=== PATIENT | female | born 1955 | race Caucasian/White ===

== ENCOUNTER → 2017-09-26 07:07 | Outpatient (CLI) | payer SELFPAY ==
[2017-09-26 10:29] LABS: Anion Gap 8 (5-15); BUN 11 mg/dL (7-18); BUN/Creat Ratio 15.7 RATIO (10-20); Calcium,Total 9.3 mg/dL (8.5-10.1); Chloride 101 mmol/L (98-107); Cholesterol 217 mg/dL (200); EST Glomerular Filtration Rate 89 mL/min (>60); Est Glom Filt Rate - Afr Amer 108 mL/min (>60); Glucose 92 mg/dL (74-106); High Density Lipoprotein 46 mg/dL; Potassium 4.4 mmol/L (3.5-5.1); Sodium Level 135 mmol/L (136-145); Thyroid Stim Hormone (TSH) 1.49 uIU/mL (0.358-3.74); Triglycerides 240 mg/dL; Very Low Density Lipoprotein 48 mg/dL (5-40); Vitamin D,25 Hydroxy 36.3 ng/mL (29.95-100.01)
== END ==
PROVIDERS: Family Provider Family Medicine; PCP Family Medicine; Visit Provider Family Medicine
DX: I10 Essential (primary) hypertension (principal); M85.80 Other specified disorders of bone density and structure, unspecified site
CPT/HCPCS: 36415; 80048; 80061; 82306; 84443

== ENCOUNTER → 2017-10-20 10:24 | Outpatient (CLI) | payer SELFPAY | PROVIDERS: Family Provider Family Medicine; PCP Family Medicine; Visit Provider Obstetrics & Gynecology | DX: Z12.4 Encounter for screening for malignant neoplasm of cervix (principal); Z12.72 Encounter for screening for malignant neoplasm of vagina | CPT/HCPCS: 87624; 88175; G0145 ==

== ENCOUNTER 2018-05-11 12:08 | Emergency (ER) | payer MEDICAID, SELFPAY ==
[2018-05-11 12:09] VITALS: BP 100/63; PULSE 118; RESP 16; TEMP 35.5; O2SAT 99; BMI 26.6
--- NOTE | 2018-05-11 12:29 | CT_ITS ---
We are attempting to reach Mikael Wilson to discuss findings. An addendum with communication details will be sent when the communication is complete. STUDY: CT ABDOMEN AND PELVIS WITHOUT CONTRAST REASON FOR EXAM: Female, 62 years old. Lower abdominal pain. Nausea and vomiting. Decreased appetite. RADIATION DOSAGE (If Supplied By Facility): CTDIvol = ( 11.69 ) mGy, DLP = ( 575.37 ) mGycm TECHNIQUE: Transaxial images were obtained from the dome of the diaphragm to the symphysis pubis without oral contrast, and without intravenous contrast. Sagittal and coronal images were reconstructed. Individualized dose optimization techniques were used for this CT. COMPARISON: None. FINDINGS: Lung bases: Lingular nodule measuring 5 mm (axial image 7 series 2). Right lung bases. Heart: Enlarged precardiac lymph node (axial image 13 series 2). Minimal coronary artery disease. Liver: Hepatic steatosis. Perihepatic ascites. Gallbladder/biliary ducts: Markedly heterogeneous appearance of the gallbladder (axial image 55 series 2 and coronal image 43 series 601). No biliary ductal dilatation. Pancreas: Unremarkable. Spleen: Perisplenic ascites. Slightly atrophic appearance of the spleen. Adrenal glands: Unremarkable. Kidneys/ureters/bladder: Unremarkable. 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 Large bowel/small bowel: Distal colon collapsed. Mild fatty replacement of the colonic wall. Fluid filled slightly dilated loops of large bowel and small bowel at the right hemiabdomen. No evidence of urvashi bowel obstruction. No evidence of perforation. No evidence of pneumatosis. Appendix: Nonvisualized. Gastroesophageal junction/stomach: Unremarkable. Retroperitoneum/lymph nodes: Diffuse mesenteric infiltration/carcinomatosis (axial image 114 series 2). Moderate volume deep pelvic free fluid with perihepatic and perisplenic ascites. Vascular: Vascular calcifications. No aneurysm. Osseous structures: Degenerative changes. No acute process. Subcutaneous/soft tissues: No acute process. 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
--- NOTE | 2018-05-11 12:33 | ED.DCSUM_ITS ---
- ER Visit Summary Date of Service: 05/11/18 Chief Complaint: Abdominal pain History of Present Illness: The patient is a 62 F who presents with lower abdominal pain for the past 1-1/2 weeks. Patient states the pain is gradually gotten worse. Patient states her primary care physician started her on Cipro and Flagyl for presumptive diverticulitis. Patient states her pain is over her lower abdomen. Patient describes the pain is dull cramping. Patient states pain is worse with sitting on a hard chair. Patient states her nausea improves when she lays flat. Patient admits to some nausea and vomiting but denies any hematemesis or coffee-ground emesis. Patient denies any diarrhea but denies any melena or hematochezia. Patient denies any urinary complaints. Patient denies any chest pain or shortness of breath. Physical Examination: Vital signs are stable. Patient is afebrile. Patient is in no acute distress. Oral mucosa is pink and moist. Neck is supple. Trachea is midline. There is no JVD noted. Heart was regular rate and rhythm. Lungs are clear and equal bilateral. Abdomen is soft. Bowel sounds are normal. There is lower abdominal tenderness. There is no rebound or guarding noted. Skin is warm dry. Cranial nerves II through XII are intact. There are no focal motor or sensory deficits noted. The remaining physical exam is within normal limits. Test Results: CBC showed a mild anemia with a hemoglobin of 11.6 and hematocrit 36.3. Basic metabolic profile showed a sodium of 127 and chloride of 95. Creatinine was slightly elevated at 1.18. Urinalysis was normal. CT scan of the abdomen and pelvis was obtained. There is diffuse infiltrative changes of the omentum and carcinomatosis with free fluid. There are dilated bowel loops in the right lower quadrant concerning for ileus. There is a heterogeneous gallbladder concerning for possible primary malignancy. SLURRY BLENDER anatomy is poorly defined secondary to extensive mesenteric changes and adjacent free fluid which is concerning for SLURRY BLENDER malignancy. There is also a 5 mm nodule noted in the left lingular segment and a chest CT was recommended. Emergency Department Course and Treatment: She was given IV fluids and morphine here. I discussed the results of her CT scan with the patient. Case was discussed with the hospitalist. She recommended transferring the patient to a tertiary facility that has gynecology oncology service. Case was discussed with Dr. Levi from [facility]. They accepted transfer the patient. Patient understood and was agreeable with the plan. All questions were answered. Disposition: Transfer to [facility] Impression: Abdominal pain, concern for abdominal malignancy This note was generated with [employer] dictation software. It may contain incorrect words, spelling, and punctuation that were not noted in review of the chart prior to signing ED Disposition - Plan for ED Patient: Disposition: [facility] Diagnosis: Abdominal pain, Abdominal malignancy Referrals: Jeffrey Hunt MD [Primary Care Provider] -
[2018-05-11 13:15] LABS: Mucous, Urine 0 SEEN /hpf (<or=2+)
[2018-05-11 13:17] LABS: Absolute Lymphocyte Count 0.89 X10^3/ul (0.83-4.51); Absolute Neutrophil Count 8.1 X10^3/uL (2.0-7.7); Basophil# 0.03 X10^3/uL; Basophil% 0.3 % (0-1); Eosinophil# 0.26 X10^3/uL; Eosinophils% 2.6 % (0-5); Hematocrit 36.3 % (37-47); Hemoglobin 11.6 g/dl (12.0-15.0); Lymphocyte # 0.89 X10^3/ul (4.0); Lymphocyte % 8.8 % (19-41); Mean Corpuscular Hgb 27.6 pg (27.0-32.0); Mean Corpuscular Volume 86.2 fL (81-99); Mean Platelet Vol. 8.2 fl (6.2-12.0); Monocyte# 0.81 X10^3/uL; Neutrophil # 8.13 X10^3/uL (2.7-7.7); Neutrophil % 80.1 % (47-70); POSITIVE COUNT NO; POSITIVE DIFFERENTIAL NO; POSITIVE MORPHOLOGY NO; Platelet Count 676 K/mm3 (150-450); RBC Distribution Width CV 12.2 % (11.6-14.6); RBC Distribution Width SD 37.4 fl (35.1-43.9); Red Blood Count 4.21 M/mm3 (4.2-5.4); White Blood Count 10.1 K/mm3 (4.4-11.0)
[2018-05-11] MEDS: Ondansetron 4 MG/2 ML Vial IV (13:19)
[2018-05-11] MEDS: Morphine 4 MG/ML Syringe IV (13:19)
[2018-05-11 13:20] LABS: Color, Urine Yellow (Yellow); Glucose, Dipstick Normal (Normal); Ketone-Dipstick Negative (Negative); Leukocyte Esterase-Dipstick 25 /ul (Negative); Nitrite-Dipstick Negative (Negative); Occult Blood-Urine 10 /ul (Negative); Protein-Dipstick 15 mg/dl (Negative); Specific Gravity, Urine 1.015 (1.002-1.030); Urine Bilirubin Dipstick Negative (Negative); Urine Clarity Sl. Cloudy (Clear); Urine Urobilinogen Normal (Normal)
[2018-05-11 13:29] LABS: Bacteria 1+ /hpf (None Seen); Red Blood Cells-Urine 0-5 SEEN /hpf (0-5); Squamous Epithelial Cells - UA 0-5 SEEN /hpf (5-10); White Blood Cells 0-5 SEEN /hpf (0-5)
[2018-05-11 13:31] LABS: ALB/GLOB Ratio 0.6 RATIO (0.9-2.4); AST(SGOT) 14 U/L (15-37); Alanine Aminotransfer ALT/SGPT 21 U/L (13-56); Alkaline Phosphatase 91 U/L (45-117); Anion Gap 9 (5-15); BUN 17 mg/dL (7-18); BUN/Creat Ratio 14.4 RATIO (10-20); Calcium,Total 9.3 mg/dL (8.5-10.1); Chloride 95 mmol/L (98-107); Creatinine, Serum 1.18 mg/dL (0.55-1.02); EST Glomerular Filtration Rate 49 mL/min (>60); Est Glom Filt Rate - Afr Amer 59 mL/min (>60); Estimated Creatinine Clearance 41.59 ml/min; Globulin 5.4 g/dL (2.2-4.2); Glucose 104 mg/dL (74-106); Lipase 203 U/L (73-393); Potassium 4.3 mmol/L (3.5-5.1); Protein, Total 8.4 g/dL (6.4-8.2); Sodium Level 127 mmol/L (136-145)
--- NOTE | 2018-05-11 13:52 | ED.RN ---
pain states pain decreased to a 2
[2018-05-11 14:06] VITALS: BP 96/44; PULSE 100; RESP 16; O2SAT 98
[2018-05-11] MEDS: 0.9% Normal Saline 1,000 ML 999 ML IV (14:06)
[2018-05-11 15:54] VITALS: BP 97/58; PULSE 106; RESP 16; O2SAT 97
[2018-05-11 16:49] VITALS: BP 128/70; PULSE 106; RESP 16; O2SAT 97
[2018-05-11 17:42] VITALS: BP 133/68; PULSE 102; RESP 16; O2SAT 95
== END 2018-05-11 18:42 | disposition short-term general hospital (02) ==
PROVIDERS: Emergency Provider Emergency Medicine; Family Provider Family Medicine; PCP Family Medicine
DX: R10.30 Lower abdominal pain, unspecified (principal); R11.2 Nausea with vomiting, unspecified; D64.9 Anemia, unspecified; M54.9 Dorsalgia, unspecified; G89.29 Other chronic pain; I10 Essential (primary) hypertension; K58.9 Irritable bowel syndrome, unspecified; R19.7 Diarrhea, unspecified; Z72.0 Tobacco use; Z79.82 Long term (current) use of aspirin; Z79.899 Other long term (current) drug therapy
CPT/HCPCS: 74176; 80053; 81001; 83690; 85025; 96361; 96374; 96375; 99284; J7030; A4216; J2405

== ENCOUNTER 2018-05-18 14:49 | Emergency (ER) | payer MEDICAID, SELFPAY ==
[2018-05-18 14:50] VITALS: BP 124/71; PULSE 132; RESP 20; TEMP 36.7; O2SAT 97; BMI 27.4
[2018-05-18 15:05] VITALS: BP 122/75; PULSE 125; RESP 26; O2SAT 93
--- NOTE | 2018-05-18 15:24 | ED.VISSUMM ---
- ER Visit Summary Date of Service: 05/18/18 Chief Complaint: Vomiting, abdominal pain History of Present Illness: The patient is a 62 F with lower abdominal and back pain for the past 3 weeks. She was seen here in the ER last week and CT scan showed concern for diffuse cancer in her abdomen, possibly INSURANCE CLAIMS EXAMINER in origin. Patient was transferred to [facility] where she had a nodule biopsied. Patient states she was called and told it was not INSURANCE CLAIMS EXAMINER source of her cancer and she is awaiting a call for follow-up with regular oncology. Patient presents back today with continued abdominal pain, nausea, and vomiting. She has had decreased p.o. intake. She does report that she is still urinating, but it is dark and concentrated. Physical Examination: Blood pressure is 122/75, temperature 98.0, heart rate 125, respiratory rate 26, pulse ox 93% on room air. Patient sitting upright in bed no acute distress. She appears ill but not toxic. Head neck examination is significant for dry mucous membranes. Heart is tachycardic and regular. Lungs sounds are grossly clear. Abdomen is soft with mild diffuse tenderness. Abdomen is distended. There is no guarding or rebound. Hypoactive bowel sounds are present. Test Results: CBC was normal white count with 83% neutrophils. Hemoglobin is 11.5 and platelet count is 663,000. Chemistry studies are significant for sodium of 127 and a chloride of 88. Glucose is 132. LFTs significant for total bili of 1.20, direct bili 0.94, alk phos 409. ALT is 106 and AST is 163. Lipase is 35,685. Right upper quadrant ultrasound is read by radiologist as findings concerning for acute cholecystitis. Gallbladder garcia measuring 3 mm. There is volodymyr-cholecystic fluid. Common bile duct is mildly dilated at 10.2 mm. Of note the patient had an CT scan last week that showed ascites. Emergency Department Course and Treatment: Patient was initially given morphine and Phenergan for pain along with IV fluids. She is given a second dose of morphine and Zofran. Test results were discussed with Dr. Sanabria. He was able to review the notes from [facility]. Looking at her images tonight he does not believe the patient has acute cholecystitis. Gallbladder wall is minimally thickened and pericholecystic fluid is likely secondary to her ascites. Concern is for primary upper GI cancer, from gallbladder or pancreas. This may be compressing the duct now causing acute pancreatitis. Patient likely needs evaluation at a tertiary center with ERCP and further testing to determine her primary source. He feels that this would best be accomplished back at [facility]. I spoke with the transfer line as well as the hospitalist. They also spoke with her surgeon. Patient has been accepted in transfer. Treatment Plan: [] Disposition: Transfer Impression: 1. Pancreatitis 2. Carcinomatosis This note was generated with [employer] dictation software. It may contain incorrect words, spelling, and punctuation that were not noted in review of the chart prior to signing ED Disposition - Plan for ED Patient: Referrals: Jeffrey Hunt MD [Primary Care Provider] -
[2018-05-18 15:35] LABS: Absolute Lymphocyte Count 0.86 X10^3/ul (0.83-4.51); Absolute Neutrophil Count 9.1 X10^3/uL (2.0-7.7); Basophil# 0.01 X10^3/uL; Basophil% 0.1 % (0-1); Eosinophil# 0.17 X10^3/uL; Eosinophils% 1.6 % (0-5); Hematocrit 35.5 % (37-47); Hemoglobin 11.5 g/dl (12.0-15.0); Lymphocyte # 0.86 X10^3/ul (4.0); Lymphocyte % 7.9 % (19-41); Mean Corp Hgb Conc 32.4 g/gl (32-36); Mean Corpuscular Hgb 27.6 pg (27.0-32.0); Mean Corpuscular Volume 85.1 fL (81-99); Mean Platelet Vol. 8.5 fl (6.2-12.0); Monocyte# 0.73 X10^3/uL; Monocyte% 6.7 % (0-10); Neutrophil # 9.14 X10^3/uL (2.7-7.7); Neutrophil % 83.4 % (47-70); Platelet Count 663 K/mm3 (150-450); RBC Distribution Width CV 12.6 % (11.6-14.6); RBC Distribution Width SD 38.8 fl (35.1-43.9); Red Blood Count 4.17 M/mm3 (4.2-5.4); White Blood Count 10.9 K/mm3 (4.4-11.0)
[2018-05-18 15:36] LABS: POSITIVE COUNT NO; POSITIVE DIFFERENTIAL NO; POSITIVE MORPHOLOGY NO
[2018-05-18] MEDS: Morphine 4 MG/ML Syringe IV ×2 (15:45→19:17)
[2018-05-18] MEDS: proMETHazine 25 MG/ML Syringe 6.25 MG IV (15:45)
[2018-05-18] MEDS: 0.9% Normal Saline 1,000 ML 1000 ML IV (15:45)
[2018-05-18 16:32] LABS: AST(SGOT) 163 U/L (15-37); Alanine Aminotransfer ALT/SGPT 106 U/L (13-56); Albumin, Serum 2.5 g/dL (3.2-5.0); Alkaline Phosphatase 409 U/L (45-117); Anion Gap 13 (5-15); BUN 12 mg/dL (7-18); Bilirubin, Direct 0.94 mg/dL (0.00-0.30); Calcium,Total 9.4 mg/dL (8.5-10.1); Chloride 88 mmol/L (98-107); Creatinine, Serum 0.86 mg/dL (0.55-1.02); EST Glomerular Filtration Rate 71 mL/min (>60); Est Glom Filt Rate - Afr Amer 86 mL/min (>60); Estimated Creatinine Clearance 57.07 ml/min; Globulin 5.3 g/dL (2.2-4.2); Glucose 132 mg/dL (74-106); Lipase 35685 U/L (73-393); Potassium 4.1 mmol/L (3.5-5.1); Protein, Total 7.8 g/dL (6.4-8.2); Sodium Level 127 mmol/L (136-145)
[2018-05-18] MEDS: 0.9% Normal Saline 1,000 ML 150 ML IV (16:40)
--- NOTE | 2018-05-18 16:53 | US_ITS ---
STUDY: ABDOMINAL ULTRASOUND - RIGHT UPPER QUADRANT REASON FOR VISIT: Female, 62 years old. Pancreatitis TECHNIQUE: Ultrasound evaluation of the right upper quadrant was performed with real-time and static wolfe-scale imaging. TECHNICAL QUALITY: Limited. Examination limited by bowel gas. COMPARISON: None. FINDINGS: Liver: The liver measures 17.6 cm. There is increased echogenicity consistent with fatty infiltration. The bile ducts are within normal limits. There is hepatic color flow. The direction of portal flow is hepatopetal. There are 2 hypoechoic solid-appearing areas. Both appear to be in the right lobe of the liver, one of them measuring 1.1 x 1.1 x 1.3 cm and the second measuring 1.2 x 1.6 x 1.1 cm. Gallbladder: Normal distended gallbladder. The gallbladder wall measures 3.2 mm. There is a positive sonographic Clarke's sign. There is pericholecystic fluid. There are multiple echogenic structures within the gallbladder, consistent with multiple gallstones. Common Bile Duct (C.B.D.): The common bile duct measures 10.2 mm. Pancreas: Normal size of the head, body and tail of the pancreas. There is normal echogenicity of the pancreas. There is no demonstrated pancreatic mass or cyst. Right Kidney: Normal size of the right kidney. The right kidney measures 10.2 cm. Normal renal cortex. The right cortex measures 1.0 cm. There is no demonstrated renal mass or cyst. There is no right hydronephrosis. There appears to be small amount of ascites fluid US/Gallbladder IMPRESSION: 1. Findings as above concerning for acute cholecystitis. Also, mildly dilated common bile duct 2. Lobulated contour of the liver with coarse echotexture suggesting cirrhosis. Hypoechoic liver masses. Further evaluation is warranted 3. Grossly unremarkable pancreas Electronically Signed: Kristopher Urbina DO at 18:58 EST Tel , Service support ,
[2018-05-18 18:50] VITALS: BP 142/93; PULSE 114; RESP 16; O2SAT 95
[2018-05-18] MEDS: Ondansetron 4 MG/2 ML Vial IV (19:17)
[2018-05-18 21:07] VITALS: PULSE 116; RESP 18; TEMP 36.9; O2SAT 94
[2018-05-18 22:45] VITALS: BP 137/85; PULSE 108; RESP 20; O2SAT 90
== END 2018-05-18 23:15 | disposition short-term general hospital (02) ==
PROVIDERS: Emergency Provider Emergency Medicine; Family Provider Family Medicine; PCP Family Medicine
DX: K85.90 Acute pancreatitis without necrosis or infection, unspecified (principal); C80.0 Disseminated malignant neoplasm, unspecified; K83.8 Other specified diseases of biliary tract; I10 Essential (primary) hypertension; R11.2 Nausea with vomiting, unspecified; Z72.0 Tobacco use; Z79.82 Long term (current) use of aspirin; Z79.899 Other long term (current) drug therapy
CPT/HCPCS: 76705; 80048; 80076; 83690; 85025; 96361; 96374; 96375; 96376; 99283; J7030; A4216; J2405

== ENCOUNTER 2018-06-04 00:55 | Emergency (ER) | payer MEDICAID, SELFPAY ==
[2018-06-04] VITALS (14 sets, daily range): BP systolic 119–149; BP diastolic 67–97; PULSE 108–121; RESP 12–33; TEMP 36.1–36.7; O2SAT 73–100; BMI 31.0
--- NOTE | 2018-06-04 01:01 | EKG12_ITS ---
Test Reason : CP Blood Pressure : / mmHG Vent. Rate : 114 BPM Atrial Rate : 114 BPM P-R Int : 120 ms QRS Dur : 078 ms QT Int : 306 ms P-R-T Axes : 054 059 074 degrees QTc Int : 421 ms Sinus tachycardia Otherwise normal ECG Confirmed by REBEKAH SEQUEIRA, RASHMI ([id number]), writer editor FLAVIA ELLIS ([id number]) on 06/05/2018 1:06:12 PM Referred By: CARMELLA Confirmed By:RASHMI WELCH MD
--- NOTE | 2018-06-04 01:01 | RAD_ITS ---
HISTORY: SHORTNESS OF BREATH EXAM/TECHNIQUE: XR Chest 2 Views: COMPARISON: 05/11/18 CT abdomen and pelvis. FINDINGS: # of images incl. paperwork: 2 Small to moderate layering bilateral pleural effusions with adjacent atelectasis are new compared to prior. Heart size within normal limits. No apparent pneumothorax. The cephalad aerated portions of the lungs are clear. RAD/Chest PA and Lateral IMPRESSION: Small to moderate layering bilateral pleural effusions with adjacent atelectasis are new compared to prior. at 0224 Reported and signed by: Rodo Morales MD Electronically Signed: Rodo Morales, at 2:23 EDT Tel , Service support ,
[2018-06-04] MEDS: Albuterol 2.5 MG/3 ML VIAL.NEB. INHALATION ×3 (01:05→02:05)
[2018-06-04] MEDS: Ipratropium/Albuterol Sulfate 3 ML AMPUL.NEB INHALATION ×2 (01:05→08:26)
[2018-06-04] MEDS: MethylPREDNISolone 125 MG/2 ML Vial IV (01:15)
[2018-06-04] MEDS: LORazepam 2 MG/ML Syringe 1 MG IV (01:30)
[2018-06-04 01:35] LABS: Absolute Lymphocyte Count 1.04 X10^3/ul (0.83-4.51); Absolute Neutrophil Count 13.4 X10^3/uL (2.0-7.7); Basophil# 0.05 X10^3/uL; Basophil% 0.3 % (0-1); Eosinophil# 0.01 X10^3/uL; Eosinophils% 0.1 % (0-5); Hematocrit 32.2 % (37-47); Hemoglobin 9.6 g/dl (12.0-15.0); Lymphocyte # 1.04 X10^3/ul (4.0); Lymphocyte % 6.8 % (19-41); Mean Corp Hgb Conc 29.8 g/gl (32-36); Mean Corpuscular Hgb 26.5 pg (27.0-32.0); Mean Platelet Vol. 8.9 fl (6.2-12.0); Monocyte# 0.76 X10^3/uL; Neutrophil # 13.36 X10^3/uL (2.7-7.7); Neutrophil % 87.5 % (47-70); RBC Distribution Width CV 14.3 % (11.6-14.6); RBC Distribution Width SD 45.2 fl (35.1-43.9); Red Blood Count 3.62 M/mm3 (4.2-5.4); White Blood Count 15.3 K/mm3 (4.4-11.0)
[2018-06-04 01:38] LABS: Platelet Count 858 K/mm3 (150-450)
[2018-06-04 01:39] LABS: Differential Indicated SCAN CRITERIA MET; POSITIVE COUNT YES; POSITIVE DIFFERENTIAL NO; POSITIVE MORPHOLOGY YES
--- NOTE | 2018-06-04 01:41 | ED.RN ---
DR DUTTA NOTIFIED OF PLT COUNT
[2018-06-04 01:42] LABS: Anion Gap 5 (5-15); BUN 11 mg/dL (7-18); BUN/Creat Ratio 11.4 RATIO (10-20); Calcium,Total 8.5 mg/dL (8.5-10.1); Chloride 94 mmol/L (98-107); Creatinine, Serum 0.96 mg/dL (0.55-1.02); EST Glomerular Filtration Rate 62 mL/min (>60); Est Glom Filt Rate - Afr Amer 75 mL/min (>60); Estimated Creatinine Clearance 53.27 ml/min; Glucose 160 mg/dL (74-106); Potassium 4.8 mmol/L (3.5-5.1); Sodium Level 131 mmol/L (136-145)
[2018-06-04 01:49] LABS: Platelet Estimate MKD INC (ADEQ)
[2018-06-04 01:50] LABS: Hypochromasia 1+
[2018-06-04 02:36] LABS: Lactic Acid 2.1 mmol/L (0.4-2.0)
--- NOTE | 2018-06-04 02:37 | ED.RN ---
DR POLANCO NOTIFIED OF LACTIC ACID RESULTS
[2018-06-04] MEDS: 0.9% Normal Saline 1,000 ML 150 ML IV (03:10)
[2018-06-04 03:29] LABS: D-Dimer Quantitative (DVT/PE) > 20.00 FEU/ug/m (0.27-0.49)
--- NOTE | 2018-06-04 03:30 | CT_ITS ---
STUDY: CTA CHEST REASON FOR EXAM: Female, 62 years old. Dyspnea RADIATION DOSAGE (If Supplied By Facility): CTDIvol = ( 10.57 ) mGy, DLP = ( 1701.61 ) mGycm TECHNIQUE: The examination was performed with the intravenous administration of Isovue 370 100 IV. Post-processing of the angiographic images was performed, with multiplanar reformation and 3D reconstruction. Individualized dose optimization techniques were used for this CT. COMPARISON: None. FINDINGS: Normal enhancement of the main pulmonary artery and right and left pulmonary arteries. Normal enhancement of the bilateral peripheral pulmonary arteries. There is no demonstrated pulmonary embolism. Normal thoracic aorta and visualized great vessels. There is no demonstrated aortic dissection. Normal heart and pericardium. Normal mediastinum. Normal hilar regions. Normal visualized trachea and bronchi. Compressive atelectasis in the right and left lungs. Normal pulmonary parenchyma. Moderate bilateral pleural effusions. Normal chest wall structures. Normal osseous structures. CT/CTA Chest W/WO Contrast IMPRESSION: No demonstrated pulmonary embolism or arterial dissection. Compressive atelectasis in the right and left lung bases. Electronically Signed: Matteo Alvarado, at 5:09 EDT Tel , Service support ,
--- NOTE | 2018-06-04 04:34 | CT_ITS ---
STUDY: CT ABDOMEN AND PELVIS WITH CONTRAST REASON FOR EXAM: Female, 62 years old. Dyspnea. RADIATION DOSAGE (If Supplied By Facility): CTDIvol = ( 10.57 ) mGy, DLP = ( 1701.61 ) mGycm TECHNIQUE: Transaxial images were obtained from the dome of the diaphragm to the symphysis pubis without oral contrast. Isovue 370 100 IV was administered. Sagittal and coronal images were reconstructed. Individualized dose optimization techniques were used for this CT. COMPARISON: 05/11/2018. FINDINGS: Moderate bilateral pleural effusions The visualized portions of the heart are within normal limits. Normal liver. There is wall thickening gallbladder concerning for possible primary malignancy . Normal spleen. Normal pancreas. Normal bilateral adrenal glands. Normal right kidney. Normal left kidney. Normal visualized stomach. Normal small intestine. Normal colon. There is non-visualization of the appendix. Normal abdominal aorta. Normal inferior vena cava. Normal retroperitoneum. Normal urinary bladder. There is large amount of free fluid in the abdomen. Normal abdominal wall. Normal osseous structures. Diffuse omental infiltrative changes and with carcinomatosis. CT/Abdomen/Pelvis W IV Cont ONLY IMPRESSION: Large ascites has increased in size since the previous study. Diffuse omental infiltrative changes and with carcinomatosis. Electronically Signed: Matteo Alvarado, at 5:04 EDT Tel , Service support ,
[2018-06-04 04:47] LABS: BNP,B-Type NATRIURETIC PEPTIDE 2582.7 pg/mL (0-100)
[2018-06-04 05:11] LABS: AST(SGOT) 26 U/L (15-37); Alanine Aminotransfer ALT/SGPT 16 U/L (13-56); Albumin, Serum 2.2 g/dL (3.2-5.0); Alkaline Phosphatase 101 U/L (45-117); Bilirubin, Direct 0.08 mg/dL (0.00-0.30); Globulin 5.7 g/dL (2.2-4.2); Protein, Total 7.9 g/dL (6.4-8.2)
--- NOTE | 2018-06-04 05:22 | ED.VISSUMM ---
- ER Visit Summary Date of Service: 06/04/18 Chief Complaint: [Shortness of breath] History of Present Illness: The patient is a 62 F [presents to the emergency department with increasing shortness of breath over the last 24 hours. Patient was just discharged from [facility] yesterday for comfort measures. 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 Patient denies any chest pain currently. She does have a history of atrial fibrillation and COPD. She denies any fevers. No significant cough.] Physical Examination: [HEENT-PERRLA, EOMI. Cranial nerves II through XII grossly intact. TMs clear. Mucous membranes moist. No adenopathy. Cardiovascular-regular rate and rhythm without murmur or ectopy Lungs-tachypneic with accessory muscle use and retractions noted. Patient diaphoretic. Patient with rales in the bases and decreased breath sounds bilaterally. Patient has expiratory wheezes bilaterally. Abdomen-normoactive bowel sounds, soft, nontender, no rebound or rigidity, no peritoneal signs. Extremities-intact ?4, normal range of motion, normal pulses, atraumatic. Patient has +2 edema both lower extremities.] Test Results: [EKG obtained showed sinus tachycardia with a ventricular rate of 114 bpm. CBC with differential showed a white count of 15.3, hemoglobin 9.6, hematocrit 32, platelets 858. Chemistries unremarkable. BUN was 11 and creatinine 0.96. Troponin was 0.144. D-dimer was less than 20. Lactate was 2.1. Chest x-ray initially showed bilateral effusions CT of the chest was negative for PE it did show bilateral effusions. CT scan of the abdomen and pelvis was ordered because the tax initially thought the patient might have free air in her abdomen however the radiologist thought that patient had large amount of ascites and carcinomatosis but no free air.] Emergency Department Course and Treatment: [Patient was given DuoNeb aerosols and started on BiPAP. Patient was given Solu-Medrol. Patient was started on Levaquin and vancomycin and blood cultures were ordered. Patient is a DO NOT INTUBATE and DO NOT RESUSCITATE. ] Treatment Plan: [Admit for continued symptom management. Family is asking for hospice consult.] Disposition: [Admit] Impression: [Respiratory distress COPD exacerbation Bilateral pleural effusions Carcinomatosis] This note was generated with Dragon dictation software. It may contain incorrect words, spelling, and punctuation that were not noted in review of the chart prior to signing ED Disposition - Plan for ED Patient: Referrals: Jeffrey Hunt MD [Primary Care Provider] -
--- NOTE | 2018-06-04 05:24 | PCM.HP.STD ---
History of Present Illness The patient is a 62 year old F [] Past Medical History Allergies Penicillins Allergy (Verified 05/18/18 14:53) Unknown acetaminophen [From Percocet] Adverse Reaction (Verified 06/04/18 03:17) Upset Stomach oxycodone [From Percocet] Adverse Reaction (Verified 06/04/18 03:17) Upset Stomach Home Medications: Ambulatory Orders Medication Instructions Recorded Aspirin E.C. [Ecotrin] 81 mg PO DAILY@0800 05/11/18 Cholecalciferol (Vitamin D3) 2,000 unit PO DAILY 05/11/18 [D3-2000] Ondansetron [Zofran Odt] 8 mg PO Q8H PRN 05/18/18 Acetaminophen [Pain Relief] 1,000 mg PO Q8H PRN 06/04/18 Aluminum-Magnesium Hydroxide 30 ml PO Q6H PRN 06/04/18 Bisacodyl 10 mg RC BID PRN 06/04/18 Docusate Sodium 100 mg PO BID 06/04/18 Hydromorphone HCl [Hydromorphone 0.5 - 1 tab PO Q3H PRN 06/04/18 ER] Metoprolol Tartrate [Lopressor 100 mg PO BID 06/04/18 (Beta Usama)] Pantoprazole Sodium 20 mg PO DAILY 06/04/18 Polyethylene Glycol 3350 [Miralax] 17 gm PO BID 06/04/18 Potassium Chloride 20 meq PO DAILY 06/04/18 Red Yeast Rice 1,200 units PO DAILY 06/04/18 SimETHICONE [Mylicon] 160 mg PO TID 06/04/18 Smoking Status: Current every day smoker - Physical Exam Vital Signs Temp Pulse Resp BP Pulse Ox 98.0 F 121 H 26 H 119/81 H 97 06/04/18 04:50 06/04/18 04:50 06/04/18 04:50 06/04/18 04:50 06/04/18 04:50 Oxygen Flow Rate (L/min) 6 Oxygen Delivery Method Nasal Cannula Weight: 84.7 kg Body Mass Index (BMI) 31.0 Laboratory Tests Past 24 Hrs 06/04/18 06/04/18 06/04/18 01:05 01:05 01:05 WBC 15.3 H RBC 3.62 L Hgb 9.6 L Hct 32.2 L MCV 89.0 MCH 26.5 L MCHC 29.8 L RDW 14.3 RDW Differential 45.2 H Plt Count 858 H* MPV 8.9 Immature Gran % (Auto) 0.300 Neut % (Auto) 87.5 H Lymph % (Auto) 6.8 L [place] % (Auto) 5.0 Eos % (Auto) 0.1 Baso % (Auto) 0.3 Absolute Neuts (auto) 13.4 H Absolute Lymphs (auto) 1.04 Total Counted Not Reportable Diff Path Review May foll Platelet Estimate MKD INC Hypochromasia 1+ D-Dimer Quant (PE/DVT) Cancelled Sodium 131 L Potassium 4.8 Chloride 94 L Carbon Dioxide 32.0 Anion Gap 5 BUN 11 Creatinine 0.96 Estim Creat Clear Calc 53.27 Est GFR (MDRD) Af Amer 75 Est GFR (MDRD) Non-Af 62 BUN/Creatinine Ratio 11.4 Glucose 160 H Lactic Acid Calcium 8.5 Total Bilirubin Direct Bilirubin AST ALT Alkaline Phosphatase Troponin I 0.144 H B-Natriuretic Peptide Total Protein Albumin Globulin 06/04/18 06/04/18 06/04/18 01:05 01:05 01:05 WBC RBC Hgb Hct MCV MCH MCHC RDW RDW Differential Plt Count MPV Immature Gran % (Auto) Neut % (Auto) Lymph % (Auto) [place] % (Auto) Eos % (Auto) Baso % (Auto) Absolute Neuts (auto) Absolute Lymphs (auto) Total Counted Diff Path Review Platelet Estimate Hypochromasia D-Dimer Quant (PE/DVT) Sodium Potassium Chloride Carbon Dioxide Anion Gap BUN Creatinine Estim Creat Clear Calc Est GFR (MDRD) Af Amer Est GFR (MDRD) Non-Af BUN/Creatinine Ratio Glucose Lactic Acid 2.1 H Calcium Total Bilirubin 0.20 Direct Bilirubin 0.08 AST 26 ALT 16 Alkaline Phosphatase 101 Troponin I B-Natriuretic Peptide 2582.7 H Total Protein 7.9 Albumin 2.2 L Globulin 5.7 H 06/04/18 02:37 WBC RBC Hgb Hct MCV MCH MCHC RDW RDW Differential Plt Count MPV Immature Gran % (Auto) Neut % (Auto) Lymph % (Auto) [place] % (Auto) Eos % (Auto) Baso % (Auto) Absolute Neuts (auto) Absolute Lymphs (auto) Total Counted Diff Path Review Platelet Estimate Hypochromasia D-Dimer Quant (PE/DVT) > 20.00 H* Sodium Potassium Chloride Carbon Dioxide Anion Gap BUN Creatinine Estim Creat Clear Calc Est GFR (MDRD) Af Amer Est GFR (MDRD) Non-Af BUN/Creatinine Ratio Glucose Lactic Acid Calcium Total Bilirubin Direct Bilirubin AST ALT Alkaline Phosphatase Troponin I B-Natriuretic Peptide Total Protein Albumin Globulin
--- NOTE | 2018-06-04 05:26 | ED.DCSUM_ITS ---
- ER Visit Summary Date of Service: 06/04/18 Chief Complaint: [Shortness of breath] History of Present Illness: The patient is a 62 F [presents to the emergency department with increasing shortness of breath over the last 24 hours. Patient was just discharged from [facility] yesterday for comfort measures. 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 Patient denies any chest pain currently. She does have a history of atrial fibrillation and COPD. She denies any fevers. No significant cough.] Physical Examination: [HEENT-PERRLA, EOMI. Cranial nerves II through XII diamond sly intact. TMs clear. Mucous membranes moist. No adenopathy. Cardiovascular-regular rate and rhythm without murmur or ectopy Lungs-tachypneic with accessory muscle use and retractions noted. Patient diaphoretic. Patient with rales in the bases and decreased breath sounds bilaterally. Patient has expiratory wheezes bilaterally. Abdomen-normoactive bowel sounds, soft, nontender, no rebound or rigidity, no peritoneal signs. Extremities-intact ?4, normal range of motion, normal pulses, atraumatic. Patient has +2 edema both lower extremities.] Test Results: [EKG obtained showed sinus tachycardia with a ventricular rate of 114 bpm. CBC with differential showed a white count of 15.3, hemoglobin 9.6, hematocrit 32, platelets 858. Chemistries unremarkable. BUN was 11 and creatinine 0.96. Troponin was 0.144. D-dimer was less than 20. Lactate was 2.1. Chest x-ray initially showed bilateral effusions CT of the chest was negative for PE it did show bilateral effusions. CT scan of the abdomen and pelvis was ordered because the tax initially thought the patient might have free air in her abdomen however the radiologist thought that patient had large amoun t of ascites and carcinomatosis but no free air.] Emergency Department Course and Treatment: [Patient was given DuoNeb aerosols and started on BiPAP. Patient was given Solu-Medrol. Patient was started on Levaquin and vancomycin and blood cultures were ordered. Patient is a DO NOT INTUBATE and DO NOT RESUSCITATE. ] Treatment Plan: [Admit for continued symptom management. Family is asking for hospice consult.] Disposition: [Admit] Impression: [Respiratory distress COPD exacerbation Bilateral pleural effusions Carcinomatosis] This note was generated with [employer] dictation software. It may contain incorrect words, spelling, and punctuation that were not noted in review of the chart prior to signing ED Disposition - Plan for ED Patient: Referrals: Jeffrey Hunt MD [Primary Care Provider] -
[2018-06-04 05:50] LABS: Reflex Lactate? Y
[2018-06-04] MEDS: Ondansetron 4 MG/2 ML Vial IV ×2 (05:56→08:14)
[2018-06-04] MEDS: Morphine 4 MG/ML Syringe IV (05:56)
[2018-06-04] MEDS: levoFLOXacin IV 750 MG/150 ML BAG 100 MG IV (05:57)
--- NOTE | 2018-06-04 06:00 | ED.DCSUM_ITS ---
- ER Visit Summary Date of Service: 06/04/18 Chief Complaint: [Addendum to initial dictation] History of Present Illness: The patient is a 62 F [] Physical Examination: [] Test Results: [] Emergency Department Course and Treatment: [] Treatment Plan: [Patient case was discussed with hospitalist who asked that I have patient evaluated in the emergency department by hospice to see if they would admit the patient.] Disposition: [Pending evaluation by hospice. Care of patient turned over the morning physician.] Impression: [Respiratory failure COPD exacerbation Pleural effusions Ascites Gallbladder cancer] This note was generated with [employer] dictation software. It may contain incorrect words, spelling, and punctuation that were not noted in review of the chart prior to signing ED Disposition - Plan for ED Patient: Referrals: Jeffrey Hunt MD [Primary Care Provider] -
[2018-06-04] MEDS: HYDROmorphone 1 MG/ML Syringe IV (08:14)
[2018-06-05 14:48] LABS: Pathologist Review Reviewed
== END 2018-06-04 09:01 | disposition home or self-care (01) ==
PROVIDERS: Emergency Provider Emergency Medicine; Family Provider Family Medicine; PCP Family Medicine
DX: J96.90 Respiratory failure, unspecified, unspecified whether with hypoxia or hypercapnia (principal); J44.1 Chronic obstructive pulmonary disease with (acute) exacerbation; C23 Malignant neoplasm of gallbladder; C80.0 Disseminated malignant neoplasm, unspecified; J90 Pleural effusion, not elsewhere classified; R18.8 Other ascites; I48.91 Unspecified atrial fibrillation; R00.0 Tachycardia, unspecified; Z72.0 Tobacco use
CPT/HCPCS: 71046; 71275; 74177; 80048; 80076; 83605; 83880; 84484; 85025; 85379; 87040; 93005; 94002; 94640; 96361; 96365; 96366; 96367; 96375; 96376; 99285; J7030; Q9967; A4216; J2405